=== PATIENT | female | born 1975 | race African-American/Black ===

== ENCOUNTER 2019-01-02 22:21 | Emergency (ER) | payer SELFPAY ==
[~2019-01-02] VITALS: Ht 170.2 cm; Wt 70.3 kg
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
--- NOTE | 2019-01-02 23:33 | NUR ---
ED Nurse Note: PT WITH X-RAY TECH.
[2019-01-02] MEDS ORDERED: HYDROcodone/Acetamin 7.5/325 tab ORAL ONE (23:45)
--- NOTE | 2019-01-03 | NUR ---
ED Nurse Note: PT STATES PAIN IS 0/10
[2019-01-03 00:25] VITALS: BP 100/68
--- NOTE | 2019-01-03 00:28 | Diagnostic Imaging Report ---
EXAM: XR Right Ankle Complete, 3 or More Views CLINICAL HISTORY: INJ TECHNIQUE: Frontal, lateral and oblique views of the right ankle. COMPARISON: No relevant prior studies available. FINDINGS: Bones joints: No acute fracture. No dislocation. Soft tissues: Unremarkable. IMPRESSION: No acute osseous abnormalities.
[2019-01-03] MEDS ORDERED: ACETAMINOPHEN-1 EAC1 ORAL (00:30)
--- NOTE | 2019-01-03 00:33 | Diagnostic Imaging Report ---
EXAM: XR Right Foot Complete, 3 or More Views CLINICAL HISTORY: INJ TECHNIQUE: Frontal, lateral and oblique views of the right foot. COMPARISON: No relevant prior studies available. FINDINGS: Bones joints: No acute fracture. No dislocation. Soft tissues: Unremarkable. No radiopaque foreign body. IMPRESSION: No acute osseous abnormalities.
--- NOTE | 2019-01-03 00:35 | NUR ---
ER DISCHARGE NOTE: Patient is cleared to be discharged per ERMD, pt is aox4, on room air, with stable vital signs. pT STATES PAIN IS 0/10. pt was given dc and prescription instructions, pt was able to verbalize understanding, pt id band a without complications. pt is able to ambulate with steady gait. pt took all belongings.
== END 2019-01-03 00:35 | disposition home or self-care (01) ==
LOC: EMR 23:50
DX: S90.01XA Contusion of right ankle, initial encounter (principal); S90.31XA Contusion of right foot, initial encounter; Y08.02XA Assault by strike by baseball bat, initial encounter; Y92.9 Unspecified place or not applicable
CPT/HCPCS: 99284